=== PATIENT | female | born 1990 | race Caucasian/White ===

== ENCOUNTER 2016-10-03 02:58 | Emergency (ER) | END 2016-10-03 09:50 | disposition home or self-care (01) | DX: N93.9 Abnormal uterine and vaginal bleeding, unspecified (principal); D64.9 Anemia, unspecified; R10.2 Pelvic and perineal pain; J45.909 Unspecified asthma, uncomplicated | CPT/HCPCS: 36415; 76830; 76856; 80053; 81001; 81003; 83690; 84702; 85025; Z7502; Z7610 ==

== ENCOUNTER 2018-04-30 12:49 | Emergency (ER) | END 2018-04-30 16:54 | disposition home or self-care (01) ==

== ENCOUNTER 2018-05-13 00:17 | Emergency (ER) | END 2018-05-13 01:48 | disposition home or self-care (01) ==

== ENCOUNTER 2018-08-17 16:54 | Emergency (ER) | END 2018-08-17 17:15 | disposition left against medical advice (07) ==